=== PATIENT | male | born 1995 | race Caucasian/White ===

== ENCOUNTER 2019-11-10 13:19 | Day surgery (SDC) | payer OTHER, SELFPAY | END 2019-11-10 19:30 | disposition home or self-care (01) | PROVIDERS: Visit Provider Podiatrist Foot & Ankle Surgery | DX: S92.111A Displaced fracture of neck of right talus, initial encounter for closed fracture (principal); S93.04XA Dislocation of right ankle joint, initial encounter; S92.214A Nondisplaced fracture of cuboid bone of right foot, initial encounter for closed fracture; V89.2XXA Person injured in unspecified motor-vehicle accident, traffic, initial encounter; Z79.891 Long term (current) use of opiate analgesic | CPT/HCPCS: 28445; 73630; J0690; J1100; J1885; J2001; J2250; J2405; J2704; J2710; J3010; J3490 ×2 ==

== ENCOUNTER 2019-12-13 16:42 | Outpatient (CLI) | payer OTHER, SELFPAY | END 2019-12-13 16:43 | disposition home or self-care (01) | LOC: SPT 16:43 | PROVIDERS: PCP Podiatrist Foot & Ankle Surgery; Visit Provider Podiatrist Foot & Ankle Surgery | DX: Z46.89 Encounter for fitting and adjustment of other specified devices (principal) | CPT/HCPCS: L4361 ==

== ENCOUNTER → 2019-12-27 15:28 | Outpatient (BNVA) | payer OTHER, SELFPAY | PROVIDERS: PCP Podiatrist Foot & Ankle Surgery; Visit Provider Podiatrist Foot & Ankle Surgery | DX: Z98.890 Other specified postprocedural states (principal); Z48.89 Encounter for other specified surgical aftercare | CPT/HCPCS: 73630 ==

== ENCOUNTER → 2020-02-01 16:01 | Outpatient (BNVA) | payer OTHER, SELFPAY | PROVIDERS: PCP Podiatrist Foot & Ankle Surgery; Visit Provider Podiatrist Foot & Ankle Surgery | DX: Z48.89 Encounter for other specified surgical aftercare | CPT/HCPCS: 73630 ==